=== PATIENT | male | born 1980 | race Caucasian/White ===

== ENCOUNTER 2017-09-20 21:11 | Emergency (ER) | payer OTHER ==
[2017-09-20 21:28] VITALS: BP 127/57; PULSE 75; RESP 16; TEMP 98; O2SAT 100
--- NOTE | 2017-09-20 23:06 | ED PDOC ---
HPI: Allergic Reaction Time Seen by Provider: 09/20/17 21:46 Chief Complaint (Nursing): Allergic Reaction Past Medical History Vital Signs: Last Vital Signs Temp 98.0 F 09/20/17 21:26 Pulse 75 09/20/17 21:26 Resp 16 09/20/17 21:26 BP 127/57 L 09/20/17 21:26 Pulse Ox 100 09/20/17 21:26 - Home Medications Home Medications: Ambulatory Orders Medication Instructions Recorded Prednisone 50 mg PO DAILY #3 tablet 09/20/17 - Allergies Allergies/Adverse Reactions: Allergies Allergy/AdvReac Type Severity Reaction Status Date / Time cashew nut Allergy ANGIOEDEMA Verified 09/20/17 21:26 Fish Containing Products Allergy ANGIOEDEMA Verified 09/20/17 21:26 pine nut Allergy ANGIOEDEMA Verified 09/20/17 21:26 pistachio nut Allergy ANGIOEDEMA Verified 09/20/17 21:26 sesame seed Allergy ANGIOEDEMA Verified 09/20/17 21:26 - ECG O2 Sat by Pulse Oximetry: 100 Disposition - Clinical Impression Clinical Impression: Allergic reaction, Angioedema - Patient ED Disposition Is Patient to be Admitted: No Doctor Will See Patient In The: Office Counseled Patient/Family Regarding: Studies Performed, Diagnosis, Need For Followup - Disposition Referrals: [facility] [Outside] Disposition: Routine/Home Disposition Time: 23:06 Condition: GOOD Additional Instructions: Take your medications as instructed. Follow up with your PCP in 2-3 days. Prescriptions: Prednisone 50 mg PO DAILY #3 tablet Instructions: Food Allergy (ED), Angioedema (ED)
--- NOTE | 2017-09-20 23:09 | ED PDOC ---
HPI: Allergic Reaction Time Seen by Provider: 09/20/17 21:46 Chief Complaint (Nursing): Allergic Reaction Chief Complaint (Provider): Allergic Reaction History Per: Patient History/Exam Limitations: no limitations Onset/Duration Of Symptoms: Hrs (4 hours ago) Current Symptoms Are (Timing): Still Present Context: Food (nut consumption) Associated Symptoms: Swelling (facial swelling), Itching Home/EMS Treatment: Benadryl Additional Complaint(s): 36 y/o male with a history of asthma and anal fissure surgery, presents to the ED complaining of facial swelling and itchiness to throat after consuming a meal that contained nuts, onset of 4 hours ago. She denies dyspnea, wheezing, or rash. Of note, the patient took Benadryl 50mg at 7:45pm with minimal relief. Past Medical History Reviewed: Historical Data, Nursing Documentation, Vital Signs Vital Signs: Last Vital Signs Temp 98.0 F 09/20/17 21:26 Pulse 75 09/20/17 21:26 Resp 16 09/20/17 21:26 BP 127/57 L 09/20/17 21:26 Pulse Ox 100 09/20/17 21:26 - Medical History PMH: Asthma - Surgical History Other surgeries: Anal fissure surgery - Family History Family History: States: Unknown Family Hx - Social History Current smoker - smoking cessation education provided: No Ex-Smoker (has not smoked in the last 12 months): No Alcohol: None Drugs: Denies - Home Medications Home Medications: Ambulatory Orders Medication Instructions Recorded Prednisone 50 mg PO DAILY #3 tablet 09/20/17 - Allergies Allergies/Adverse Reactions: Allergies Allergy/AdvReac Type Severity Reaction Status Date / Time cashew nut Allergy ANGIOEDEMA Verified 09/20/17 21:26 Fish Containing Products Allergy ANGIOEDEMA Verified 09/20/17 21:26 pine nut Allergy ANGIOEDEMA Verified 09/20/17 21:26 pistachio nut Allergy ANGIOEDEMA Verified 09/20/17 21:26 sesame seed Allergy ANGIOEDEMA Verified 09/20/17 21:26 Review of Systems ROS Statement: Except As Marked, All Systems Reviewed And Found Negative Constitutional: Positive for: Other (facial swelling). Negative for: Fever ENT: Positive for: Other (itching towards throat region) Respiratory: Negative for: Shortness of Breath, Wheezing Skin: Negative for: Rash Physical Exam - Reviewed Nursing Documentation Reviewed: Yes Vital Signs Reviewed: Yes - Physical Exam Appears: Positive for: Non-toxic, No Acute Distress Head Exam: Positive for: ATRAUMATIC (facial mild swelling), NORMOCEPHALIC Skin: Positive for: Normal Color, Warm. Negative for: Rash Eye Exam: Positive for: Normal appearance, EOMI, PERRL ENT: Positive for: Normal ENT Inspection. Negative for: Other (lip, tongue or throat swelling) Neck: Positive for: Normal, Painless ROM, Supple Cardiovascular/Chest: Positive for: Regular Rate, Rhythm. Negative for: Murmur Respiratory: Positive for: Normal Breath Sounds. Negative for: Respiratory Distress Gastrointestinal/Abdominal: Positive for: Normal Exam, Soft. Negative for: Tenderness Back: Positive for: Normal Inspection Extremity: Positive for: Normal ROM. Negative for: Pedal Edema, Deformity Neurologic/Psych: Positive for: Alert, Oriented (x3). Negative for: Motor/ Sensory Deficits - ECG O2 Sat by Pulse Oximetry: 100 (RA) Pulse Ox Interpretation: Normal Disposition - Clinical Impression Clinical Impression: Allergic reaction, Angioedema - Patient ED Disposition Is Patient to be Admitted: No - Disposition Referrals: [facility] [Outside] Disposition: Routine/Home Disposition Time: 23:06 Condition: IMPROVED Additional Instructions: Take your medications as instructed. Follow up with your PCP in 2-3 days. Prescriptions: Prednisone 50 mg PO DAILY #3 tablet Instructions: Food Allergy (ED), Angioedema (ED) Forms: [employer] (Vietnamese) Medical Decision Making Medical Decision Making: Time: --21:59 Impression: --Allergic reaction with facial angioedema due to nut allergy Plan: --Famotidine 20mg PO --prednisone 60mg PO Reassess --23:03 Patient reports a significant improvement of symptoms an is asking to be discharge home Scribe Attestation: Documented by Adelfo Doherty acting as a scribe for Jorge May MD.
== END 2017-09-20 23:30 | disposition home or self-care (01) ==
LOC: H.ER 21:11
DX: T78.3XXA Angioneurotic edema, initial encounter (principal); J45.909 Unspecified asthma, uncomplicated